=== PATIENT | male | born 1935 | race Caucasian/White ===

== ENCOUNTER 2017-02-23 07:34 | Day surgery (SDC) | payer MEDICARE, OTHER ==
[~2017-02-23] VITALS: Ht 172.7 cm; Wt 81.7 kg
[~2017-02-23 07:34] MED LIST: ALLO300T2 PO; ASPI-973 PO; BENA40TA2 PO; COLC25PO2 MC; METF500T4 PO; METO25TA6 PO; OMEP20CA11 PO; PANT40TA3 PO; SIMV20TA4 PO; Sodium Chloride LOK Flush 10 mL Syringe IV PRN; fentaNYL-PF 50 mCg/mL 2 mL Inj IVPUSH PRN
[2017-02-23 07:53] VITALS: BP 131/71; PULSE 65; RESP 14; O2SAT 98
[2017-02-23] MEDS ORDERED: 0.9% Sodium Chloride 1,000 ML IV ONE (08:51)
[2017-02-23 09:00] VITALS: BP 117/69; PULSE 63; RESP 16; O2SAT 94
[2017-02-23 09:10] VITALS: BP 116/69; PULSE 60; RESP 16; O2SAT 94
[2017-02-23 09:20] VITALS: BP 123/78; PULSE 64; RESP 16; O2SAT 93
--- NOTE | 2017-02-23 10:06 | ENDO ---
[address] [address] ENDOSCOPY PROCEDURE PATIENT: TANISHA FOX : 1935 MR#: [id number] ADMIT: 02/23/2017 JOB ID: [id number] DATE: 02/23/2017 TYPE OF OPERATION: 1. Esophagogastroduodenoscopy with biopsy. 2. Colonoscopy. PREOPERATIVE DIAGNOSIS(ES): Dysphagia, weight loss and gastroesophageal reflux disease. POSTOPERATIVE DIAGNOSIS(ES): 1. Schatzki ring seen in distal esophagus. 2. Distal esophageal ulcer, 7 mm, clean based, nonbleeding. 3. Moderate distal esophagitis. 4. Sigmoid diverticulosis. 5. Medium-sized hiatal hernia. ANESTHESIA: 1. Fentanyl 75 mcg. 2. Versed 4 mg IV administered. COMPLICATIONS: None. BLOOD LOSS: Minimal. DESCRIPTION OF PROCEDURE: After risks and benefits were explained to the patient, informed consent was obtained. After anesthesia administered, an upper endoscope was then inserted in the mouth intubating through esophagus, stomach, second portion of duodenum. Mucosa carefully examined. After procedure was done, the scope withdrawn and procedure terminated. The colonoscope was inserted per rectum to the cecum. Mucosa carefully examined. Prep of the patient was excellent. After the procedure was done, the scope withdrawn and procedure terminated. FINDINGS: Upon inspection of the esophagus, there was a Schatzki ring in the distal esophagus along with mild erosive esophagitis and a 7 mm distal esophageal ulcer, clean based, nonbleeding. Biopsies were taken of this region and mid esophagus. Z-line located 30 cm from incisors. Upon entering the stomach, there were no masses, ulcers, lesions are seen. Retroflexion showed moderate medium-sized hiatal hernia. Duodenal bulb, first and second portion were normal. Biopsies taken of the duodenum, antrum, body, mid and distal esophagus. Upon inspection of the anus, no masses, hemorrhoids, ulcers, or fissures that were seen. Throughout the entire examination, there was mild sigmoid diverticulosis. No polyps or masses were seen. Retroflexion was normal. IMPRESSIONS: 1. Schatzki ring distal esophagus. 2. Distal esophageal ulcer 7mm clean base nonbleeding, status post biopsy. 3. Moderate distal esophagitis. 4. Medium-sized hiatal hernia. 5. Sigmoid diverticulosis, mild. RECOMMENDATIONS: 1. High-fiber diet. 2. Await pathology results. 3. Protonix 40 mg by mouth twice a day. 4. Carafate 1 g by mouth four times a day. 5. Followup in GI clinic as needed. MTDD
--- NOTE | 2017-02-28 11:23 | PATH ---
SURGICAL PATHOLOGY Attending Physician:Kevin Jimenez MD CASE STATUS: Signed Out PATIENT NAME: TANISHA FOX PID: [id number] : 1935 DATE COLLECTED:02/23/2017 15:35 SPECIMEN: 1: Duodenum, Biopsy 2: Stomach, Antrum, Biopsy 3: Gastric, Biopsy 4: Esophagus, Biopsy 5: Esophagus, Biopsy CLINICAL HISTORY: 1. DUODENUM BIOPSY 2. GASTRIC ANTRUM BIOPSY R/O H.PYLORI 3. GASTRIC BODY BIOPSY 4. DISTAL ESOPHAGUS 5. MID ESOPHAGUS FINAL DIAGNOSIS: 1. 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 Negative for evidence of celiac disease. Negative for dysplasia and malignancy. 2. Gastric Antrum Biopsy: Mild chronic gastritis involving antral mucosa. Negative for evidence of Helicobacter on H&E stain. Negative for intestinal metaplasia. Negative for dysplasia and malignancy. 3. Gastric Body Biopsy: Focal minimal superficial chronic gastritis involving fundic mucosa. Negative for evidence of Helicobacter on H&E stain. Negative for intestinal metaplasia. Negative for dysplasia and malignancy. 4. Distal Esophagus Biopsy: Squamous mucosa and gastric cardia-type mucosa with severe chronic active inflammation and ulceration. No fungi or viral inclusion identified. Negative for specialized metaplasia of Yuen's type esophagus. Negative for dysplasia and malignancy. Negative for squamous intraepithelial eosinophils. 5. Mid Esophagus Biopsy: Fragments of squamous epithelium, negative for atypia. Negative for intraepithelial eosinophils. ICD10: K22.10 GROSS DESCRIPTION: The specimen is received in five formalin filled containers labeled with the patient's name. 1). The specimen is sublabeled "duodenum" and consists of 2 portions of tissue which aggregate to 0.4 x 0.3 x 0.2 CM. The specimen is entirely submitted in cassette 1A. 2). The specimen is sublabeled "gastric antrum" and consists of 2 portions of tissue which aggregate to 0.3 x 0.3 x 0.2 CM. The specimen is entirely submitted in cassette 2A. 3). The specimen is sublabeled "gastric body" and consists of 2 portions of tissue which aggregate to 0.3 x 0.3 x 0.2 CM. The specimen is entirely submitted in cassette 3A. 4). The specimen is sublabeled "distal esophagus" and consists of 2 portions of tissue which aggregate to 0.3 x 0.3 x 0.2 CM. The specimen is entirely submitted in cassette 4A. 5). The specimen is sublabeled "midesophagus" and consists of 2 portions of tissue which aggregate to 0.2 x 0.2 x 0.1 CM. The specimen is entirely submitted in cassette 5A. 02/23/2017 [facility] ICD-9 CODES: CPT CODES: 1: 99100 2: 50587 3: 04179 4: 31698 5: 02907 Electronically Signed Out Moe Dorsey MD [facility] [address], [place] [address] Technical component performed at [facility], [facility] [address], [place], [address]
== END 2017-02-23 23:59 | disposition home or self-care (01) ==
LOC: END 07:34
PROVIDERS: ATTEND Internal Medicine Gastroenterology
DX: R63.4 Abnormal weight loss (principal); K57.30 Diverticulosis of large intestine without perforation or abscess without bleeding; K29.50 Unspecified chronic gastritis without bleeding; K29.80 Duodenitis without bleeding; K22.2 Esophageal obstruction; K44.9 Diaphragmatic hernia without obstruction or gangrene; K22.10 Ulcer of esophagus without bleeding; K21.9 Gastro-esophageal reflux disease without esophagitis; G47.33 Obstructive sleep apnea (adult) (pediatric); I10 Essential (primary) hypertension; E78.5 Hyperlipidemia, unspecified; Z85.46 Personal history of malignant neoplasm of prostate; Z79.82 Long term (current) use of aspirin
CPT/HCPCS: 43239; 45378; 99153; G0500; J2250; J3010; J7030